=== PATIENT | female | born 1955 | race African-American/Black ===

== ENCOUNTER → 2017-03-29 | Outpatient (CLI) | payer OTHER, MEDICARE ==
--- NOTE | 2017-03-29 13:01 | MRI ---
HISTORY: Low back pain, spondylosis Study: MRI lumbar spine without contrast Comparison: None Technique: Multiplanar multi-sequence MRI of the lumbar spine was obtained. Sagittal T1, sagittal T2 , and stir weighted images, axial T1, and axial T2 images were obtained. Findings: The lumbar spine demonstrates normal alignment with the expected signal characteristics of the bone m arrow. The conus of the cord terminates normally. T12 -- L1: No evidence for compressive disc disease. The neural foramina are patent. The joints are n ormal. L1 -- L2: No evidence for compressive disc disease. The neural foramina are patent. The joints are no rmal. L2 -- L3: No evidence for compressive disc disease. The neural foramina are patent. Mild bilateral fa cet arthropathy is present. L3 -- L4: No evidence for compressive disc disease. The neural foramina are patent. Mild bilateral fa cet arthropathy is present. L4 -- L5: There is broad-based disc bulging which effaces the thecal sac and contributes along with l igamentous hypertrophy and bilateral facet arthropathy to a relative spinal stenosis with significant lateral recess and foraminal narrowing bilaterally right slightly worse than left. L5 -- S1: There is mild disc bulging which is not significantly compressive. The neural foramina are patent. Bilateral facet arthropathy is present. IMPRESSION: As above Reported By:
== END ==
LOC: RAD 09:39
PROVIDERS: ATTEND Psychiatry & Neurology Neurology
DX: M47.816 Spondylosis without myelopathy or radiculopathy, lumbar region (principal); M54.5 Low back pain
CPT/HCPCS: 72148